=== PATIENT | female | born 1975 | race Caucasian/White ===

== ENCOUNTER 2017-05-09 18:10 | Emergency (ER) | payer OTHER ==
[~2017-05-09] VITALS: Ht 170.2 cm; Wt 91.0 kg
[2017-05-09 18:13] VITALS: TEMP 36.5; Ht 170.2 cm; Wt 91.0 kg
[2017-05-09] MEDS ORDERED: IBUPROFEN 200 MG TAB PO STA (18:24)
--- NOTE | 2017-05-09 19:11 | DIAGNOSTIC IMAGING REPORT ---
L KNEE 3 VIEWS CLINICAL HISTORY: L knee pain trauma. Pain. COMPARISON: None. DISCUSSION: The bones and joint spaces appear intact. There is no evidence of fracture, dislocation or bony disease. There is no evidence for soft tissue swelling. IMPRESSION: Negative study. The above report was generated using voice recognition software. It may contain grammatical, syntax or spelling errors. Electronically signed by: Gabriel Escobar M.D. 05/09/2017 7:09 PM Dictated Date/Time: 05/09/2017 7:09 PM
[2017-05-09] MEDS ORDERED: TYLENOL #3 HOME PACK PO ONE (19:30)
[2017-05-09] MEDS ORDERED: ACETAMINOPHEN/CODEINE 300/30MG TAB PO ONE (19:30)
[2017-05-09] MEDS ORDERED: ACET-749 PO (19:31)
--- NOTE | 2017-05-09 19:36 | EMERGENCY ROOM VISIT NOTE ---
History First contact with patient: 18:17 Chief Complaint: KNEEPAIN Stated Complaint: LEFT KNEE History of Present Illness The patient is a 42 year old female who presents to the Emergency Room with complaints of an injury to her left knee today while attempting to hold a horse by its bridle and it bucked, causing her to twist her knee. The patient reports feeling something pop. She now reports pain rated a 7 out of 10 with ambulation. The patient has had problems with her knee for the past 7 months, but cannot recall any specific injury to the knee. Since her injury today, she also reports pain radiating from her back into the leg. She does report a prior history of 2 back surgeries for herniated disc. She reports that this pain is different, and feels like a knee injury. The pain is worsened with weightbearing and movement of the knee joint. She denies any paresthesias or numbness of the left or extremity. She has not taken anything for the pain since the injury. Review of Systems 10 system review was performed and was negative except for pertinent positives and negatives as indicated in history of present illness Past Medical/Surgical History Medical Problems: (1) No significant past medical history Surgical Problems: (1) History of back surgery Family History Unremarkable Social History Smoking Status: Never Smoker Alcohol Use: none Marital Status: Housing Status: lives with family Occupation Status: employed Current/Historical Medications Scheduled PRN Acetaminophen/Codeine (Tylenol W/Codeine #3), 1-2 TABS PO q4-6h PRN for Pain Physical Exam Vital Signs Date Time Temp Pulse Resp B/P (MAP) Pulse Ox O2 Delivery O2 Flow Rate FiO2 05/09/17 18:13 36.5 85 18 125/85 98 Room Air Physical Exam CONSTITUTIONAL: Healthy and well nourished. Alert and oriented X 3 with positive affect. Patient appears in moderate discomfort from pain. HEENT: Normocephalic, atraumatic. Pupils equal, round and reactive. NECK: Full active range of motion without discomfort. MUSCULOSKELETAL: Examination of the left knee does not show any obvious ecchymosis, erythema or joint effusion on palpation. The patient has no focal tenderness to palpation through the medial or lateral joint line, patella or quadriceps/patellar tendons. The patient refuses range of motion because of pain. Collateral ligaments are grossly intact. Pedal pulses are intact. INTEGUMENTARY: No rash or other significant dermatologic conditions noted. NEUROLOGIC: Left lower extremity is sensory intact. Medical Decision & Procedures ER Provider Diagnostic Interpretation: My interpretation of left knee x-rays does not show any obvious fractures or dislocation. Radiologist report is as follows: L KNEE 3 VIEWS CLINICAL HISTORY: L knee pain trauma. Pain. COMPARISON: None. DISCUSSION: The bones and joint spaces appear intact. There is no evidence of fracture, dislocation or bony disease. There is no evidence for soft tissue swelling. IMPRESSION: Negative study. Medications Administered Medications (Trade) Dose Ordered Sig/Adrián Route Start Time Stop Time Status Last Admin Dose Admin Ibuprofen (Advil Tab) 400 mg NOW STAT PO 05/09/17 18:24 05/09/17 18:26 DC 05/09/17 18:31 400 MG ED Course Patient history and physical exam were performed. Nurse's notes were reviewed. Vital signs were reviewed and were normal. The patient was administered ibuprofen 400 mg. She refused any stronger analgesics. X-rays of the left knee were normal. The patient was advised that this is likely a soft tissue injury, which cannot be seen on x-rays. The patient was advised that she would need further orthopedic follow-up for reevaluation. A knee immobilizer was applied. The patient reports having crutches at home. She was administered Tylenol with Codeine as well prior to discharge as the ibuprofen did not help with her pain. She was dispensed a home pack and provided a prescription for more Tylenol with Codeine. She was instructed to intermittently apply ice and elevate the knee for swelling and pain. She was provided contact information for [facility] for follow-up. The patient was happy with plan of care, voiced understanding of all discharge instructions, and rated her pain a 4 out of 10 at the conclusion of my exam. Medical Decision [place] Drug Monitoring Program Search Results: patient reviewed within database, no issues identified Medication Reconcilliation Current Medication List: was personally reviewed by me Blood Pressure Screening Patient's blood pressure: Normal blood pressure Impression Primary Impression: Left knee injury Departure Information Prescriptions Acetaminophen/Codeine (Tylenol W/Codeine #3) 300 Mg/30 Mg Tab 1-2 TABS PO q4-6h Y for Pain, #20 TAB For Initial Treatment Prov: Jean Claude Roach PA 05/09/17 Referrals No Doctor, Assigned (PCP) Patient Instructions [facility] Problem Qualifiers Primary Impression: Left knee injury Encounter type: initial encounter Qualified Codes: S89.92XA - Unspecified injury of left lower leg, initial encounter
[2017-05-09 20:05] VITALS: BP 145/78; PULSE 88; O2SAT 98
== END 2017-05-09 20:05 | disposition home or self-care (01) ==
LOC: C.EDB 18:11 → C.EDD 20:05
DX: S89.92XA Unspecified injury of left lower leg, initial encounter (principal); X50.0XXA Overexertion from strenuous movement or load, initial encounter